=== PATIENT | female | born 1990 | race Caucasian/White ===

== ENCOUNTER 2017-09-16 14:48 | Emergency (ER) | payer OTHER ==
[~2017-09-16] VITALS: Ht 165.1 cm; Wt 78.6 kg
[2017-09-16 14:54] VITALS: Ht 165.1 cm; Wt 78.6 kg
[2017-09-16 17:33] VITALS: BP 135/84
== END 2017-09-16 17:33 | disposition home or self-care (01) ==
LOC: ED 14:48
DX: N83.201 Unspecified ovarian cyst, right side (principal)
CPT/HCPCS: J1885